=== PATIENT | female | born 2000 ===

== ENCOUNTER → 2024-07-19 | Outpatient (CLI) | payer OTHER | END | disposition home or self-care (01) | LOC: LAB SHORT 16:19 → LAB 16:19 | DX: Z34.90 Encounter for supervision of normal pregnancy, unspecified, unspecified trimester (principal) | CPT/HCPCS: 87081; 87150 ==

== ENCOUNTER 2024-08-09 16:54 | Observation (INO) | payer OTHER ==
[2024-08-09] VITALS (8 sets, daily range): BP systolic 103–120; BP diastolic 56–78
[2024-08-09 17:37] LABS: BASOPHILS ABSOLUTE AUTO 0.02 K/mm3 (0.00-0.23); BASOPHILS PERCENT AUTO 0 % (0-2); EOSINOPHILS ABSOLUTE AUTO 0.09 K/mm3 (0.00-0.68); EOSINOPHILS PERCENT AUTO 1 % (0-6); Hematocrit 38.4 % (33.0-51.0); Hemoglobin 13.6 g/dL (11.5-16.0); IMMATURE GRAN ABSOLUTE AUTO 0.05 K/mm3 (0.00-0.10); IMMATURE GRAN PERCENT AUTO 1 % (0-1); LYMPHOCYTES ABSOLUTE AUTO 1.48 K/mm3 (0.84-5.20); LYMPHOCYTES PERCENT AUTO 15 % (21-46); MONOCYTES ABSOLUTE AUTO 0.54 K/mm3 (0.16-1.47); MONOCYTES PERCENT AUTO 6 % (4-13); Mean Corpuscular HGB 33.6 pg (26.0-34.0); Mean Corpuscular HGB Conc 35.4 g/dL (31.5-36.5); Mean Corpuscular Volume 95 fL (80-100); Mean Platelet Volume 10.6 fL (9.1-12.4); NEUTROPHILS PERCENT AUTO 77 % (41-73); Platelet Count 150 K/mm3 (150-400); RDW Coefficient Variation 12.2 % (11.7-14.2); RDW Standard Deviation 42.5 fL (35.1-46.3); Red Blood Cell Count 4.05 M/mm3 (3.80-5.20); White Blood Cell Count 9.58 K/mm3 (4.00-11.30)
[2024-08-09 18:15] LABS: Albumin, Blood 2.7 g/dL (3.4-5.0); Albumin/Globulin Ratio 0.8 (0.8-1.8); Bilirubin, Total 0.4 mg/dL (0.1-1.0); Bun/Creatinine Ratio 17.3 (12.0-20.0); Calcium, Blood 9.1 mg/dL (8.5-10.1); Creatinine, Blood 0.58 mg/dL (0.40-1.00); Globulin, Blood 3.6 g/dL (2.2-4.0); Potassium, Blood 3.8 mmol/L (3.5-5.5); Total Protein, Blood 6.3 g/dL (6.4-8.2)
[2024-08-09 18:42] LABS: Protein, Urine Random <5.0 mg/dL (0.0-11.9); Protein/Creat Ratio, Ur Random Unable to Calculate
[2024-08-09] MEDS ORDERED: Lactated Ringer's 1,000 ML IV ONE (19:35)
[2024-08-10 04:24] VITALS: BP 115/58
[2024-08-10 08:40] VITALS: BP 118/64
--- NOTE | 2024-08-10 08:49 | NUR ---
DISCHARGE MAY DC HOME AFTER REACTIVE NST. PT HAS NO QUESTIONS OR CONCERNS AND WILL FOLLOW UP WITH DR ARELLANO IN OFFICE ON FRIDAY. VERBALIZES UNDERSTANDING OF DC INSTRUCTIONS AND WILL RETURN TO [facility] WITH ANY CHANGES.
[2024-08-10 08:56] VITALS: BP 113/56
== END 2024-08-10 09:10 | disposition home or self-care (01) ==
LOC: BC 16:54 → OBS 16:54 → BC 16:58 → OBS 18:43 → BC 18:44
PROVIDERS: ADMIT Obstetrics & Gynecology
DX: O10.913 Unspecified pre-existing hypertension complicating pregnancy, third trimester (principal); Z3A.38 38 weeks gestation of pregnancy
CPT/HCPCS: 59025; 76815; 80053; 82570; 84156; 85025; 87210; 99214; J7120

== ENCOUNTER 2024-08-18 07:05 | Inpatient (IN) | payer BC, OTHER ==
[~2024-08-18] VITALS: Ht 160 cm; Wt 88.9 kg
[2024-08-18] VITALS (28 sets, daily range): BP systolic 94–147; BP diastolic 51–76
[2024-08-18] MEDS ORDERED: Ondansetron HCl 2 MG / ML 2ML Vial IV PRN (07:45)
[2024-08-18] MEDS ORDERED: Misoprostol 200 MCG Tab BC PRN (07:45)
[2024-08-18] MEDS ORDERED: Carboprost Tromethamine 250 MCG/ML 1ML Amp IM PRN ×2 (07:45→23:30)
[2024-08-18] MEDS ORDERED: Methylergonovine Maleate 0.2MG / ML 1ML Amp IM PRN ×2 (07:45→23:30)
[2024-08-18] MEDS ORDERED: FentaNYL 2mcg/ml-Bup 0.1% Epd 250 ML EPI PRN (07:45)
[2024-08-18] MEDS ORDERED: Acetaminophen 500 MG Tab PO PRN (07:45)
[2024-08-18] MEDS ORDERED: Oxytocin 10 Unit / ML Vial IM PRN (07:45)
[2024-08-18] MEDS ORDERED: Lactated Ringer's 1,000 ML IV PRN ×3 (07:45→08:05)
[2024-08-18] MEDS ORDERED: ePHEDrine Sulfate 50 MG/ML 1ML Injection XX PRN (07:45)
[2024-08-18] MEDS ORDERED: Lactated Ringer's 1,000 ML IV SCH ×4 (07:45→23:30)
[2024-08-18] MEDS ORDERED: Misoprostol 200 MCG Tab PR PRN ×2 (07:45→23:30)
[2024-08-18] MEDS ORDERED: OXYTOCIN/RINGER'S LACTATE 500 ML IV PRN (07:45)
[2024-08-18] MEDS ORDERED: Misoprostol 25 MCG Tab VAG ONE (07:50)
[2024-08-18] MEDS ORDERED: OXYTOCIN/RINGER'S LACTATE 500 ML IV SCH ×3 (07:55→23:30)
[2024-08-18] MEDS ORDERED: Calcium Carbonate 500 MG Tab Chew PO PRN (07:55)
[2024-08-18] MEDS ORDERED: Tranexamic Acid 100 ML IV SCH (08:00)
[2024-08-18] MEDS ORDERED: PRENATAL TABLE1 EAC2 PO (08:07)
[2024-08-18 08:13] LABS: BASOPHILS ABSOLUTE AUTO 0.01 K/mm3 (0.00-0.23); BASOPHILS PERCENT AUTO 0 % (0-2); EOSINOPHILS ABSOLUTE AUTO 0.04 K/mm3 (0.00-0.68); EOSINOPHILS PERCENT AUTO 1 % (0-6); Hematocrit 37.9 % (33.0-51.0); Hemoglobin 13.2 g/dL (11.5-16.0); IMMATURE GRAN ABSOLUTE AUTO 0.04 K/mm3 (0.00-0.10); IMMATURE GRAN PERCENT AUTO 1 % (0-1); LYMPHOCYTES ABSOLUTE AUTO 1.06 K/mm3 (0.84-5.20); LYMPHOCYTES PERCENT AUTO 12 % (21-46); MONOCYTES ABSOLUTE AUTO 0.54 K/mm3 (0.16-1.47); MONOCYTES PERCENT AUTO 6 % (4-13); Mean Corpuscular HGB 33.1 pg (26.0-34.0); Mean Corpuscular HGB Conc 34.8 g/dL (31.5-36.5); Mean Corpuscular Volume 95 fL (80-100); Mean Platelet Volume 10.9 fL (9.1-12.4); NEUTROPHILS ABSOLUTE AUTO 6.97 K/mm3 (1.96-9.15); NEUTROPHILS PERCENT AUTO 81 % (41-73); Platelet Count 142 K/mm3 (150-400); RDW Coefficient Variation 12.3 % (11.7-14.2); RDW Standard Deviation 42.6 fL (35.1-46.3); Red Blood Cell Count 3.99 M/mm3 (3.80-5.20); White Blood Cell Count 8.66 K/mm3 (4.00-11.30)
--- NOTE | 2024-08-18 13:00 | NUR ---
PT ASKED IF COULD GO OUTSIDE TO VAPE, PT EXPLAINED NOT ABLE TO DO THAT, THAT GUERA IS NO SMOKING AND THAT IF SHE GOES TO THE [facility], SHE IS OFF [facility] AND NEEDS TO BE DISCHARGED, DR ARELLANO WILL BE IN TO SEE PT AND SHE CAN ASK DR ARELLANO ABOUT GOING TO [facility] E[facility] SO THAT SHE IS ABLE TO VAPE ON THE CORNER IF SOMEONE IS ABLE TO WATCH THE BABY
[2024-08-18] MEDS ORDERED: FentaNYL Citrate 50 MCG/ML 2 ML Injection IV PRN (15:25)
[2024-08-18] MEDS ORDERED: Docusate Sodium 100 MG Cap PO PRN (23:25)
[2024-08-18] MEDS ORDERED: Acetaminophen 325 MG TABLET PO PRN (23:30)
[2024-08-18] MEDS ORDERED: Ketorolac Tromethamine 30mg Vial IV PRN (23:30)
[2024-08-18] MEDS ORDERED: Benzocaine Topical Anesthetic Spray 60GM TOP PRN (23:30)
[2024-08-18] MEDS ORDERED: Witch Hazel/Glycerin PADS TOP PRN (23:35)
[2024-08-18] MEDS ORDERED: Ibuprofen 400 MG Tab PO PRN (23:35)
[2024-08-18] MEDS ORDERED: FLU VACC TS2024-25(6MOS UP)/PF 45 MCG/0.5 ML SYRINGE IM SCH (23:35)
[2024-08-19] VITALS (7 sets, daily range): BP systolic 105–134; BP diastolic 55–63
[2024-08-19] MEDS ORDERED: ACET500 PO (07:23)
[2024-08-19] MEDS ORDERED: IBUP800 PO (07:23)
[2024-08-19] MEDS ORDERED: Prenatal Vit/FE Fumarate/FA 1 Tab PO SCH (09:00)
--- NOTE | 2024-08-19 23:35 | NUR ---
DISCHARGE NOTE; PT TO DC TO [facility] NOW. PT GIVEN DC INSTRUCTIONS AND ENCOURAGED TO ASK QUESTIONS, PT HAS NO FURTHER QUESTIONS AT THIS TIME. BLEEDING IS STABLE. PT VOIDING INDEPENDENTLY. VITAL SIGNS ARE STABLE.
== END 2024-08-19 23:43 | disposition home or self-care (01) | DRG 807 ==
LOC: BC 07:05 → OBS 07:05 → BC 07:37
PROVIDERS: ADMIT Obstetrics & Gynecology
PROC: 10E0XZZ Delivery of Products of Conception, External Approach (ICD-10-PCS; principal; 2024-08-18)
PROC: 10907ZC Drainage of Amniotic Fluid, Therapeutic from Products of Conception, Via Natural or Artificial Opening (ICD-10-PCS; 2024-08-18)
PROC: 0HQ9XZZ Repair Perineum Skin, External Approach (ICD-10-PCS; 2024-08-18)
PROC: 3E0R3BZ Introduction of Anesthetic Agent into Spinal Canal, Percutaneous Approach (ICD-10-PCS; 2024-08-18)
PROC: 00HU33Z Insertion of Infusion Device into Spinal Canal, Percutaneous Approach (ICD-10-PCS; 2024-08-18)
DX: O41.03X0 Oligohydramnios, third trimester, not applicable or unspecified (principal); Z37.0 Single live birth; Z3A.39 39 weeks gestation of pregnancy; O75.89 Other specified complications of labor and delivery; R03.0 Elevated blood-pressure reading, without diagnosis of hypertension; O70.0 First degree perineal laceration during delivery
CPT/HCPCS: 36415; 51702; 85025; 86850; 86900; 86901; A9270; J1885; J2590; J7120

== ENCOUNTER → 2024-09-27 | Outpatient (CLI) | payer BC, OTHER ==
[~2024-09-27] MED LIST: ACET500 PO; IBUP800 PO; PRENATAL TABLE1 EAC2 PO
== END ==
LOC: LAB SHORT 15:59 → LAB 15:59
PROVIDERS: Obstetrics & Gynecology
DX: Z01.419 Encounter for gynecological examination (general) (routine) without abnormal findings (principal)
CPT/HCPCS: G0123